=== PATIENT | female | born 1955 | race Caucasian/White ===

== ENCOUNTER 2017-06-06 09:02 | Day surgery (SDC) | payer BC ==
[~2017-06-06 09:02] MED LIST: Lactated Ringers 1,000 ML IV SCH
[2017-06-06] MEDS ORDERED: Propofol 200 MG/20 ML SDV ONE ×2 (10:02→11:20)
[2017-06-06] MEDS ORDERED: fentaNYL 100 MCG/2 ML SDV ONE (10:02)
[2017-06-06 12:37] VITALS: BP 116/70
--- NOTE | 2017-06-06 17:19 | OR ---
DATE OF SURGERY: 06/06/2017. REFERRING PROVIDER: Bernadette Lora PA-C. PREOPERATIVE DIAGNOSES: 1. Personal history of colon polyps. Last colonoscopy was 10 years ago and done in [place] at which time she did have a couple of polyps, although type unknown. 2. Positive family history of colon cancer in paternal grandmother as well as both great grandparents on paternal side. POSTOPERATIVE DIAGNOSIS: Tortuous, redundant colon, but otherwise normal. PROCEDURE: Colonoscopy. SURGEON: Navdeep Page M.D. ANESTHESIA: Monitored anesthesia care. BOWEL PREP: Good. DESCRIPTION OF PROCEDURE: Mally is a 61-year-old female was brought to the endoscopy suite after discussing risks and benefits of the procedure. Informed consent was obtained for conscious sedation and colonoscopy with or without biopsy and/or polypectomy. We also discussed possibility of missed lesions. Pre-procedure exam was unremarkable. IV, oxygen, and monitors were placed. The patient was placed in the left lateral decubitus position. Sedation was administered and a digital rectal exam was performed which was unremarkable. Colonoscope was passed into the rectum and slowly advanced all the way to the cecum. The patient did have a rather tortuous redundant colon which did require some scope maneuvering as well as abdominal pressure to obtain cecal intubation. Cecum was viewed and photographed. The colonoscope was slowly withdrawn and the mucosa was closed observed in a direct circumferential manner. The ascending colon was unremarkable. The transverse colon was unremarkable. The descending colon was unremarkable. The sigmoid colon was unremarkable. Retroflexion was performed and rectal mucosa was unremarkable. Scope was removed. The patient tolerated the procedure well. The patient was monitored until that baseline status. Discharge instructions were reviewed and the patient was discharged in good condition. COMPLICATIONS: None. TOTAL TIME: 23 minutes. ESTIMATED BLOOD LOSS: None. RECOMMENDATIONS/FOLLOW-UP: Recommend repeat colonoscopy in 5 years given the personal history of polyps as well as the positive family history of colon cancer. I would like to kindly thank Bernadette Lora for this referral. DMB: 06/06/2017 11:40:22 MODL: 06/06/2017 16:18:31 /[id number]
== END 2017-06-06 12:59 | disposition home or self-care (01) ==
LOC: VM.SDS 09:02
PROVIDERS: ATTEND Family Medicine
DX: Z12.11 Encounter for screening for malignant neoplasm of colon (principal); Q43.8 Other specified congenital malformations of intestine; Z86.010 Personal history of colon polyps; Z80.0 Family history of malignant neoplasm of digestive organs; E55.9 Vitamin D deficiency, unspecified; E66.9 Obesity, unspecified; Z68.30 Body mass index [BMI] 30.0-30.9, adult; F32.9 Major depressive disorder, single episode, unspecified
CPT/HCPCS: 45378; J2704; J7120; J3010

== ENCOUNTER 2018-05-10 13:52 | Emergency (ER) | payer BC ==
[2018-05-10] MEDS ORDERED: Sodium Chloride 0.9% 10 ML Syringe FLUSH PRN (14:26)
[2018-05-10] MEDS ORDERED: Lactated Ringers 1,000 ML IV SCH (14:30)
--- NOTE | 2018-05-10 14:35 | EDM.PDOC ---
ED HPI GENERAL MEDICAL PROBLEM - General Chief Complaint: Abdominal Pain Stated Complaint: STOMACH PAINS SINCE SATURDAY Time Seen by Provider: 05/10/18 14:00 Source of Information: Reports: Patient History Limitations: Reports: No Limitations - History of Present Illness INITIAL COMMENTS - FREE TEXT/NARRATIVE: Patient comes into the emergency department today with complaint of lower generalized abdominal pain. She states starting on Saturday she had a low-grade fever nausea and vomited multiple occurrences through Saturday. Saturday she stopped vomiting and was able to keep down food. However she states she then developed lower abdominal discomfort. She states that this pain has continued until today. She has not sought primary care prior to today's visit regarding abdominal discomfort. She denies any urinary symptoms denies any localized or radiating pain she denies any loose stools or constipation. She does state she feels like her stomach is bloated. She does have a history of colon cancer in the family however she's not had any pre-screening's completed for that. She denies any shortness of breath, nausea/vomiting, or any fever today. last ate or drank was 1200 noon. Onset: Gradual Quality: Reports: Dull, Pressure Severity: Mild Improves with: Reports: Rest Worsens with: Reports: Movement Anterior Abdomen Pain Score (Numeric/FACES): 3 - Related Data Allergies Allergy/AdvReac Type Severity Reaction Status Date / Time No Known Allergies Allergy Verified 05/10/18 13:58 Home Meds: Home Meds Aspirin [Halfprin] 81 mg PO DAILY 06/06/17 [History] Ergocalciferol (Vitamin D2) [Vitamin D2] 2,000 unit PO DAILY 06/06/17 [History] Multivitamin [Multiple Vitamins] 1 tab PO DAILY 06/06/17 [History] Past Medical History HEENT History: Reports: Impaired Vision Cardiovascular History: Reports: None Respiratory History: Reports: None Gastrointestinal History: Reports: Colon Polyp, Other (See Below) Other Gastrointestinal History: fm hx colon ca Genitourinary History: Reports: None Musculoskeletal History: Reports: None Neurological History: Reports: None Psychiatric History: Reports: Depression Endocrine/Metabolic History: Reports: Obesity/BMI 30+, Vitamin D Deficiency Hematologic History: Reports: Anemia Immunologic History: Reports: None Oncologic (Cancer) History: Reports: None Dermatologic History: Reports: None - Past Surgical History HEENT Surgical History: Reports: Oral Surgery, Tonsillectomy Cardiovascular Surgical History: Reports: None GI Surgical History: Reports: Colonoscopy Social & Family History - Tobacco Use Smoking Status *Q: Never Smoker - Recreational Drug Use Recreational Drug Use: No ED ROS GENERAL - Review of Systems Review Of Systems: See Below Constitutional: Reports: No Symptoms. Denies: Fever, Chills, Malaise, Weakness , Fatigue, Night Sweats, Diaphoresis, Decreased Appetite, Weight Loss, Weight Gain HEENT: Reports: No Symptoms Respiratory: Reports: No Symptoms Cardiovascular: Reports: No Symptoms Endocrine: Reports: No Symptoms GI/Abdominal: Reports: Abdominal Pain, Distension, Flatus, Nausea (sat-sat), Vomiting (sat-sat) : Reports: No Symptoms Musculoskeletal: Reports: No Symptoms Skin: Reports: No Symptoms Neurological: Reports: No Symptoms Psychiatric: Reports: No Symptoms Hematologic/Lymphatic: Reports: No Symptoms Immunologic: Reports: No Symptoms ED EXAM, GENERAL - Physical Exam Exam: See Below Exam Limited By: No Limitations General Appearance: Alert, WD/WN, No Apparent Distress Head: Atraumatic, Normocephalic Respiratory/Chest: No Respiratory Distress, Lungs Clear, Normal Breath Sounds, No Accessory Muscle Use, Chest Non-Tender Cardiovascular: Normal Peripheral Pulses, Regular Rate, Rhythm, No Edema GI/Abdominal: Distended, Tender. No: Guarding, Rigid, Rebound, Abnormal Bowel Sounds, Hernia, Mass, Splenomegaly Extremities: Normal Inspection, Normal Range of Motion, Non-Tender, Normal Capillary Refill Neurological: Alert, Oriented, Normal Gait Psychiatric: Normal Affect, Normal Mood Skin Exam: Warm, Dry, Intact, Normal Color Course - Vital Signs Last Recorded V/S: Last Vital Signs Temp 36.6 C 05/10/18 16:39 Pulse 88 05/10/18 16:39 Resp 20 05/10/18 16:39 BP 136/91 H 05/10/18 16:39 Pulse Ox 98 05/10/18 16:39 - Orders/Labs/Meds Orders: Active Orders 24 hr Category Date Time Status Abdomen Pelvis w Cont [CT] Stat Exams 05/10/18 14:25 Taken UA W/MICROSCOPIC [URIN] Stat Lab 05/10/18 15:37 Ordered Lactated Ringers [Ringers, Lactated] 1,000 ml Med 05/10/18 14:30 Active IV ASDIRECTED Sodium Chloride 0.9% [Saline Flush] Med 05/10/18 14:26 Active 10 ml FLUSH ASDIRECTED PRN Peripheral IV Insertion Adult [OM.PC] Stat Oth 05/10/18 14:26 Ordered Medication Orders Lactated Ringer's (Ringers, Lactated) 1,000 mls @ 1,000 mls/hr IV ASDIRECTED BROOKE Last Admin: 05/10/18 14:44 Dose: 1,000 mls/hr Sodium Chloride (Saline Flush) 10 ml FLUSH ASDIRECTED PRN PRN Reason: Keep Vein Open Labs: Laboratory Tests 05/10/18 05/10/18 05/10/18 Range/Units 14:38 14:38 15:37 WBC 9.3 (4.0-10.0) x10^3/uL RBC 3.87 L (4.00-5.50) x10^6/uL Hgb 12.5 (12.0-16.0) g/dL Hct 36.3 (33.0-47.0) % MCV 93.8 H (78.0-93.0) fL MCH 32.3 H (26.0-32.0) pg MCHC 34.4 (32.0-36.0) g/dL RDW Coeff of Shoaib 12.6 (10.0-15.0) % Plt Count 290 (130-400) x10^3/uL Neut % (Auto) 62.4 (50.0-80.0) % Lymph % (Auto) 23.5 L (25.0-50.0) % [place] % (Auto) 9.8 (2.0-11.0) % Eos % (Auto) 4.1 H (0.0-4.0) % Baso % (Auto) 0.2 (0.2-1.2) % Sodium 138 (136-145) mmol/L Potassium 3.3 L (3.5-5.1) mmol/L Chloride 104 (98-107) mmol/L Carbon Dioxide 29 (21-32) mmol/L Anion Gap 8.3 L (10-20) mmol/L BUN 20 H (7-18) mg/dL Creatinine 0.7 (0.55-1.02) mg/dL Est Cr Clr Drug Dosing 76.90 mL/min Estimated GFR (MDRD) > 60 Glucose 96 (74-106) mg/dL Calcium 8.8 (8.5-10.1) mg/dL Corrected Calcium 9.52 (8.5-10.1) mg/dL Total Bilirubin 0.3 (0.2-1.0) mg/dL AST 28 (15-37) U/L ALT 64 H (14-59) U/L Alkaline Phosphatase 84 (46-116) U/L Total Protein 6.9 (6.4-8.2) g/dL Albumin 3.1 L (3.4-5.0) g/dL Globulin 3.8 Albumin/Globulin Ratio 0.82 Urine Color Yellow (YELLOW) Urine Appearance Slightly cloudy H (CLEAR) Urine pH 5.5 (5.0-8.0) Ur Specific [place] 1.020 Urine Protein Negative (NEGATIVE) mg/dL Urine Glucose (UA) Negative (NEGATIVE) mg/dL Urine Ketones Negative (NEGATIVE) mg/dL Urine Occult Blood Small H (NEGATIVE) Urine Nitrite Negative (NEGATIVE) Urine Bilirubin Negative (NEGATIVE) Urine Urobilinogen 0.2 (0.2) EU/dL Ur Leukocyte Esterase Small H (NEGATIVE) Urine RBC 0-5 (NOT SEEN) /HPF Urine WBC 0-5 (NOT SEEN) /HPF Ur Squamous Epith Cells Few H (NEGATIVE) /HPF Calcium Oxalate Crystal Rare H (NEGATIVE) /HPF Urine Bacteria Rare (NEGATIVE) /HPF Urine Mucus Few H (NEGATIVE) /LPF Meds: Medications Generic Name Dose Route Start Last Admin Trade Name Freq PRN Reason Stop Dose Admin Lactated Ringer's 1,000 mls @ 1,000 mls/hr 05/10/18 14:30 05/10/18 14:44 Ringers, Lactated IV 1,000 mls/hr ASDIRECTED BROOKE Administration Sodium Chloride 10 ml 05/10/18 14:26 Saline Flush FLUSH ASDIRECTED PRN Keep Vein Open Discontinued Medications Generic Name Dose Route Start Last Admin Trade Name Freq PRN Reason Stop Dose Admin Sodium Chloride 30 mls @ 3 mls/sec 05/10/18 15:45 Normal Saline IV 05/10/18 16:00 ASDIRECTED BROOKE Iopamidol 100 ml 05/10/18 16:20 05/10/18 16:23 Isovue-300 (61%) IVPUSH 05/10/18 16:21 100 ml ONETIME ONE Administration - Radiology Interpretation CT Results Date: 05/10/18 (acute cholecystitis, small to moderate amount of free fluid in the pelvis) Departure - Departure Time of Disposition: 17:00 Disposition: Home, Self-Care 01 Clinical Impression: Cholecystitis - Discharge Information *PRESCRIPTION DRUG MONITORING PROGRAM REVIEWED*: Not Applicable *COPY OF PRESCRIPTION DRUG MONITORING REPORT IN PATIENT WARNER: Not Applicable Instructions: Cholecystitis, [id number] Referrals: Bernadette Lora PA-C [Primary Care Provider] - Forms: ED Department Discharge Additional Instructions: 1. Please remain NPO until evaluated by the surgeon incase surgery can be schedule for this evening or early tomorrow 2. Please go directly to the [facility] to be directly admitted under Surgical services Dr. Trimble accepted and Dr. Lassiter will be evaluated you. 3. Your room number at [facility] is: 502 - My Orders Last 24 Hours: My Active Orders 05/10/18 14:25 Abdomen Pelvis w Cont [CT] Stat 05/10/18 14:26 Sodium Chloride 0.9% [Saline Flush] 10 ml FLUSH ASDIRECTED PRN Peripheral IV Insertion Adult [OM.PC] Stat 05/10/18 14:30 Lactated Ringers [Ringers, Lactated] 1,000 ml IV ASDIRECTED 05/10/18 15:37 UA W/MICROSCOPIC [URIN] Stat - Assessment/Plan Last 24 Hours: My Active Orders 05/10/18 14:25 Abdomen Pelvis w Cont [CT] Stat 05/10/18 14:26 Sodium Chloride 0.9% [Saline Flush] 10 ml FLUSH ASDIRECTED PRN Peripheral IV Insertion Adult [OM.PC] Stat 05/10/18 14:30 Lactated Ringers [Ringers, Lactated] 1,000 ml IV ASDIRECTED 05/10/18 15:37 UA W/MICROSCOPIC [URIN] Stat Assessment:: 1. abdominal pain Plan: 1. labs completed in ER with results discussed with the pt 2. CT scan completed in ER with results discussed with the pt 3. IV started with fluids to help with recent n/v and decrease in oral intake 4. Did offer pain medication however pt declined 5. Consultation was completed with [facility] general surgeon Dr. Trimble. Who agrees this patient will need surgical intervention. He did state she may not have surgery right upon admit. The pt is ok with this and would like to proceed with admission to have further medical intervention. Pt will go by private vehicle and be directly admitted to surgical services.
[2018-05-10 15:02] LABS: ANION GAP 8.3 mmol/L (10-20); CHLORIDE,CL 104 mmol/L (98-107); SODIUM,NA 138 mmol/L (136-145)
[2018-05-10] MEDS ORDERED: Sodium Chloride 0.9% 30 ML IV SCH (15:45)
[2018-05-10] MEDS ORDERED: Iopamidol 612 MG/ML 100 ML Bottle IVPUSH ONE (16:20)
[2018-05-10 16:40] VITALS: BP 136/91
== END 2018-05-10 17:16 | disposition home or self-care (01) ==
LOC: VM.ED 13:52
DX: K81.0 Acute cholecystitis (principal); Z79.82 Long term (current) use of aspirin; Z79.899 Other long term (current) drug therapy
CPT/HCPCS: 36415; 74177; 80053; 81001; 85025; 96365; 96366; 99285; J7120; Q9967